=== PATIENT | male | born 1955 | race Caucasian/White ===

== ENCOUNTER → 2018-08-22 | Outpatient (CLI) | payer BC ==
--- NOTE | 2018-08-22 08:50 | RAD ---
Examination: SHOULDER 2+V LEFT History: CHRONIC LEFT SHOULDER PAIN Comparison/Correlation: None Findings: Total of 3 images of the left shoulder were obtained. Acromioclavicular joint degenerative changes are present. Left glenohumeral relationship is unremarkable. Mild spurring of the bony glenoid evident. Left upper lung field is unremarkable. Postoperative cervical spine fusion noted. Left second rib deformity which may represent old fracture noted. Correlate with history. No acute or suspicious process. Impression: Mild degenerative changes of the left acromioclavicular joint. Mild spurring about the bony glenoid. Electronically signed by: Jesus Cerda MD (08/22/2018 8:47 AM) [facility]
== END | disposition home or self-care (01) ==
LOC: DXRAD 08:24
PROVIDERS: ATTEND Physician Assistant Medical
DX: M19.012 Primary osteoarthritis, left shoulder (principal); M95.4 Acquired deformity of chest and rib
CPT/HCPCS: 73030

== ENCOUNTER → 2019-09-13 | Outpatient (CLI) | payer BC ==
--- NOTE | 2019-09-13 16:24 | RAD ---
AP view of the pelvis and two-view study of the right hip Clinical indications: Right hip pain. FINDINGS: Hip joints are symmetric. There is no significant arthritic change present. No acute fracture or dislocation or lytic process the right hip is evident. No lytic process or acute fracture of the pelvic bones is seen and no diastases is evident. IMPRESSION: No significant osseous abnormality. Electronically signed by: Corey Hartman MD (09/13/2019 4:22 PM) [facility]
== END | disposition home or self-care (01) ==
LOC: PMG 07:43
PROVIDERS: ATTEND Physician Assistant
DX: M25.551 Pain in right hip (principal)
CPT/HCPCS: 73502

== ENCOUNTER 2020-04-05 17:13 | Emergency (ER) | payer MEDICARE, BC ==
[~2020-04-05] VITALS: Ht 172.7 cm; Wt 120.0 kg
[2020-04-05 17:18] VITALS: BP 137/86
--- NOTE | 2020-04-05 18:27 | PHYS DOC ---
General Adult EDM: Chief Complaint: MECHANICAL FALL HPI: HPI: "..I ve been having problems with bursitis in my hip... at lst the though I pulled a muscle.. then I ve had injection s of steroids.. x 2.. the last time did not help... then today I slipped and fell...." Patient is a 64 year old male who presents with above hx and complaints of bilateral hip pain after trip and fall. Pt. has had problems with hip pain for some time. Has undergone 2 episodes of steroid injections to treat bursitis in hips. Patient has been amatory since fall but is painful. Patient has a history of chronic back pain and sciatica. Patient normally follows with [facility] for care. Patient denies any traumas of ill contacts. No history immunosuppression. No history of fever or chills. No problems with defecation or urination since fall. Review of Systems: Review of Systems: Constitutional: Denies fever or chills Eyes: Denies change in visual acuity HENT: Denies nasal congestion or sore throat Respiratory: Denies cough or shortness of breath Cardiovascular: Denies chest pain or edema GI: Denies abdominal pain, nausea, vomiting, bloody stools or diarrhea : Denies dysuria Musculoskeletal: Complains of bilateral hip pain Integument: Denies rash Neurologic: Denies headache, focal weakness or sensory changes Endocrine: Denies polyuria or polydipsia Lymphatic: Denies swollen glands Psychiatric: Denies depression or anxiety Heart Score: Risk Factors: Risk Factors: DM, Current or recent (<one month) smoker, HTN, HLP, family history of CAD, obesity. Risk Scores: Score 0 - 3: 2.5% MACE over next 6 weeks - Discharge Home Score 4 - 6: 20.3% MACE over next 6 weeks - Admit for Clinical Observation Score 7 - 10: 72.7% MACE over next 6 weeks - Early Invasive Strategies Family History: Family History: Noncontributory to presentation Current Medications: Current Meds: See nursing for home meds Allergies: Allergies: No known drug allergies Physical Exam: PE: Constitutional: Moderate acute distress, non-toxic appearance. [] HENT: Normocephalic, atraumatic, bilateral external ears normal, oropharynx moist, no oral exudates, nose normal. [] Eyes: PERRLA, EOMI, conjunctiva normal, no discharge. [] Neck: Normal range of motion, no tenderness, supple, no stridor. [] Cardiovascular:Heart rate regular rhythm, no murmur [] Lungs & Thorax: Bilateral breath sounds clear to auscultation [] Abdomen: Bowel sounds normal, soft, no tenderness, no masses, no pulsatile masses. [] Skin: Warm, dry, no erythema, no rash. [] Back: No tenderness, no CVA tenderness. [] Old surgery scar Extremities: Bilateral hip tenderness, no cyanosis, no clubbing, ROM intact, no edema. [] Neurologic: Alert and oriented X 3, normal motor function, normal sensory function, no focal deficits noted. [] Psychologic: Affect normal, judgement normal, mood normal. [] EKG: EKG: [] Radiology/Procedures: Radiology/Procedures: [] Signed PATIENT: ASHANTI ROSARIO ACCOUNT: [id number] : 1955 LOCATION: ER AGE: 64 SEX: M EXAM STATUS: REG ER ORD. PHYSICIAN: BESSIE JOHNSON MD REASON: fall PROCEDURE: CT LUMBAR SPINE WO CONTRAST CT LUMBAR SPINE WO CONTRAST, CT PELVIS WO CONTRAST History:Fall. Pain. Technique: Noncontrast CT was performed of the lumbar spine and pelvis. Multiplanar reconstructions were performed. Exposure: One or more of the following individualized dose reduction techniques were utilized for this examination: 1. Automated exposure control 2. Adjustment of the mA and/or kV according to patient size 3. Use of iterative reconstruction technique. Comparison: Lumbar spine MRI August 20, 2014 Findings: Lumbar spine CT: Postoperative changes L4-5 posterior stabilization and interbody fusion. Spinal stimulator leads noted. Right-sided laminectomy L3-L4. Grade 1 anterolisthesis L4 on L5. Mild retrolisthesis L2 on L3. Mild leftward curvature the lumbar spine. Normal vertebral body height. No fracture. Advanced multilevel degenerative disc changes most prominent L2-L3, L3-L4 and L5-S1. Moderate canal narrowing L2-L3. Mild canal narrowing L3-L4. Multilevel neuroforaminal narrowing most prominent right L4-L5 and bilateral L5-S1. CT pelvis: Large fat-containing umbilical hernia with fascial defect measuring 5.3 cm. Colonic diverticulosis. Atheromatous plaque throughout the nonaneurysmal abdominal aorta and branch vessels. Normal alignment of the hips. No fracture. Impression: 1. No acute osseous abnormality. 2. Advanced lumbar spondylosis with multilevel canal and neuroforaminal narrowing. 3. Postoperative changes L4-L5. 4. Large fat-containing umbilical hernia. Electronically signed by: Wayne Euceda DO (04/05/2020 7:50 PM) [facility] DICTATED AND SIGNED BY: WAYNE EUCEDA DO DATE: 04/05/201949 CC: BESSIE JOHNSON MD; ROHITH RAMSEY ~ Course & Med Decision Making: Course & Med Decision Making Pertinent Labs and Imaging studies reviewed. (See chart for details) Patient use ice packs as needed. Take ibuprofen for pain. For marked pain may take Vicoprofen. Follow-up with primary care. Keep follow-up with orthopedics. Return if any concerns. Impression: 1. Fall 2. Bilateral contusions hips. 3. Chronic low back pain-sciatica ( multilevel canal and neuro foraminal narrowing) [] Dragon Disclaimer: Dragon Disclaimer: This electronic medical record was generated, in whole or in part, using a voice recognition dictation system. Departure Departure: Disposition: 01 HOME/RESIDENCE PRIOR TO ADM Condition: STABLE Referrals: ROHITH RAMSEY (PCP) Scripts Hydrocodone/Ibuprofen (HYDROCODONE-IBUPROFEN 7.5-200 ) 1 Each Tablet 2 TAB PO PRN Q6HRS PRN for PAIN, #30 TAB 0 Refills Prov: BESSIE JOHNSON MD 04/05/20 Dragon Disclaimer This chart was dictated in whole or in part using Voice Recognition software in a busy, high-work load, and often noisy Emergency Department environment. It may contain unintended and wholly unrecognized errors or omissions. BESSIE JOHNSON MD April 05, 2020 18:26
[2020-04-05] MEDS ORDERED: HYDROcodon/IBUPROFEN 7.5/200MG 1 TAB TABLET PO ONE (19:00)
--- NOTE | 2020-04-05 19:53 | RAD ---
CT LUMBAR SPINE WO CONTRAST, CT PELVIS WO CONTRAST History:Fall. Pain. Technique: Noncontrast CT was performed of the lumbar spine and pelvis. Multiplanar reconstructions were performed. Exposure: One or more of the following individualized dose reduction techniques were utilized for this examination: 1. Automated exposure control 2. Adjustment of the mA and/or kV according to patient size 3. Use of iterative reconstruction technique. Comparison: Lumbar spine MRI August 20, 2014 Findings: Lumbar spine CT: Postoperative changes L4-5 posterior stabilization and interbody fusion. Spinal stimulator leads noted. Right-sided laminectomy L3-L4. Grade 1 anterolisthesis L4 on L5. Mild retrolisthesis L2 on L3. Mild leftward curvature the lumbar spine. Normal vertebral body height. No fracture. Advanced multilevel degenerative disc changes most prominent L2-L3, L3-L4 and L5-S1. Moderate canal narrowing L2-L3. Mild canal narrowing L3-L4. Multilevel neuroforaminal narrowing most prominent right L4-L5 and bilateral L5-S1. CT pelvis: Large fat-containing umbilical hernia with fascial defect measuring 5.3 cm. Colonic diverticulosis. Atheromatous plaque throughout the nonaneurysmal abdominal aorta and branch vessels. Normal alignment of the hips. No fracture. Impression: 1. No acute osseous abnormality. 2. Advanced lumbar spondylosis with multilevel canal and neuroforaminal narrowing. 3. Postoperative changes L4-L5. 4. Large fat-containing umbilical hernia. Electronically signed by: Wayne Up DO (04/05/2020 7:50 PM) [facility]
[2020-04-05] MEDS ORDERED: HYDR-1179 PO (20:10)
== END 2020-04-05 20:25 | disposition home or self-care (01) ==
LOC: ER 17:13
DX: S70.02XA Contusion of left hip, initial encounter (principal); S70.01XA Contusion of right hip, initial encounter; G89.29 Other chronic pain; M54.40 Lumbago with sciatica, unspecified side; W01.0XXA Fall on same level from slipping, tripping and stumbling without subsequent striking against object, initial encounter; Y93.89 Activity, other specified; Y92.89 Other specified places as the place of occurrence of the external cause; Y99.8 Other external cause status
CPT/HCPCS: 72131; 72192; 99285-25

== ENCOUNTER → 2020-10-26 | Outpatient (CLI) | payer MEDICARE, BC ==
[~2020-10-26] MED LIST: HYDR-1179 PO
--- NOTE | 2020-10-26 09:22 | RAD ---
EXAM: Lumbar spine, 7 views. HISTORY: Pain. COMPARISON: CT dated 04/05/2020. FINDINGS: Frontal, lateral, bilateral oblique and coned sacral views of the lumbar spine are obtained. There is instrumented posterior spinal fusion and disc space fusion device placement at L4-L5. There is lumbar levoscoliosis centered at L2-L3. There is grade 1 anterolisthesis of L4 on L5, measuring 4 mm. There is multilevel endplate remodeling with disc space narrowing, osteophyte ptosis and vacuum phenomenon. There is multilevel facet arthropathy, primarily at L4-L5 and L5-S1. There are dorsal column stimulator leads extending cephalad over the thoracic spine the on the [id number]. There is an ectatic atherosclerotic abdominal aorta. IMPRESSION: 1. Multilevel degenerative change involving the lumbar spine, described above. 2. Instrumented fusion at L4-L5. 3. Lumbar scoliosis and grade 1 anterolisthesis of L4 on L5. Electronically signed by: Fela Meadows MD (10/26/2020 9:19 AM) [facility]
== END ==
LOC: DXRAD 08:44
PROVIDERS: ATTEND Physician Assistant Medical
DX: M47.817 Spondylosis without myelopathy or radiculopathy, lumbosacral region (principal); M41.86 Other forms of scoliosis, lumbar region; M25.78 Osteophyte, vertebrae
CPT/HCPCS: 72110